=== PATIENT | female | born 1995 | race Two or more races ===

== ENCOUNTER 2018-02-08 01:18 | Emergency (ER) | payer SELFPAY ==
--- NOTE | 2018-02-08 03:26 | RADIOLOGY REPORT (SQ) ---
CLINICAL HISTORY: vag bleeding COMPARISON: None. TECHNIQUE: US TRANSVAGINAL on 02/08/2018 1:43 AM ENERGY CONSULTANT FINDINGS: Uterus measures 9.2 cm and is normal in echotexture. Endometrium measures 5.4 mm. Cervix measures 3 cm and contains small nabothian cysts. Right ovary measures 4.1 x 3.0 x 3.2 cm and contains several cysts, largest of which measures 1.5 cm. Left ovary measures 3.1 x 2.1 x 2.1 cm and is normal in echotexture. There is patent flow to both ovaries. IMPRESSION: Small right ovarian cyst.
[2018-02-08 03:43] LABS: ABSOLUTE BASOPHILS # (AUTO) 0.1 10^3/uL (0.0-0.2); ABSOLUTE EOSINOPHILS # (AUTO) 0.2 10^3/uL (0.0-0.6); ABSOLUTE LYMPHOCYTES (AUTO) 2.9 10^3/uL (0.5-4.7); ABSOLUTE MONOCYTES (AUTO) 0.7 10^3/uL (0.1-1.4); ABSOLUTE NEUT (AUTO) 4.7 10^3/uL (1.7-8.2); BASOPHILS % (AUTO) 0.7 % (0-2); EOSINOPHILS % (AUTO) 2.7 % (0-6); HEMATOCRIT 36.7 % (36.0-47.0); HEMOGLOBIN 12.9 g/dL (12.0-15.5); LYMPHOCYTES % (AUTO) 33.6 % (13-45); MEAN CORPUSCULAR HGB CONC 35.1 g/dL (32.0-36.0); MEAN CORPUSCULAR VOLUME 88 fl (80-97); MONOCYTES % (AUTO) 8.7 % (3-13); PLATELET COUNT 340 10^3/uL (150-450); RED BLOOD COUNT 4.16 10^6/uL (3.72-5.28); RED CELL DISTRIBUTION WIDTH 12.9 % (11.5-14.0); SEGMENTED NEUTROPHILS % (AUTO) 54.3 % (42-78); TOTAL CELLS COUNTED % (AUTO) 100 %; WHITE BLOOD COUNT 8.6 10^3/uL (4.0-10.5)
[2018-02-08 03:51] LABS: APPEARANCE,URINE CLOUDY; BILIRUBIN,URINE NEGATIVE (NEGATIVE); COLOR,URINE YELLOW; GLUCOSE, URINE NEGATIVE (NEGATIVE); KETONES,URINE NEGATIVE (NEGATIVE); LEUKOCYTE ESTERASE,URINE NEGATIVE (NEGATIVE); NITRITE,URINE NEGATIVE (NEGATIVE); PROTEIN,URINE 30 mg/dL (NEGATIVE); URINE SPECIFIC GRAVITY 1.027
[2018-02-08 04:00] LABS: ALANINE AMINOTRANSFERASE 24 U/L (9-52); ALBUMIN 4.6 g/dL (3.5-5.0); ALKALINE PHOSPHATASE 62 U/L (38-126); ANION GAP 13 (5-19); ASPARTATE AMINO TRANSFERASE 21 U/L (14-36); BILIRUBIN,DIRECT 0.3 mg/dL (0.0-0.4); BILIRUBIN,TOTAL 0.7 mg/dL (0.2-1.3); BLOOD UREA NITROGEN 14 mg/dL (7-20); CALCIUM 9.8 mg/dL (8.4-10.2); CARBON DIOXIDE 29 mmol/L (22-30); CHLORIDE 104 mmol/L (98-107); GLUCOSE 91 mg/dL (75-110); SODIUM 146.2 mmol/L (137-145); TOTAL PROTEIN 7.5 g/dL (6.3-8.2)
[2018-02-08 04:46] LABS: EPITHELIALS (WET MOUNT) 3+ EPITHELIALS SEEN; RBCS (WET MOUNT) RARE RBCS SEEN; T.VAGINALIS (WET MOUNT) NO TRICHOMONAS SEEN; WBCS (WET MOUNT) NO WBCS SEEN; YEAST (WET MOUNT) NO YEAST SEEN
--- NOTE | 2018-02-08 05:34 | ER Document Report ---
ED General - General Chief Complaint: Vaginal Bleeding Stated Complaint: VAGINAL BLEEDING Time Seen by Provider: 02/08/18 01:41 Notes: Patient is a 22-year-old female presenting to the emergency department chief complaint vaginal bleeding. Patient states her menses ended on Sunday. States today initially she woke up with blood in her underwear. States it was a very little amount. Then patient noted throughout the day when she would use the bathroom and wipe there was also blood on the tissue. Patient states she has no dysuria and she knows that the blood is coming from her vagina. Patient denies dysuria, fever does admit to some malodorous vaginal discharge. Patient does admit to some minor suprapubic cramping. past medical history: None Medications: None Allergies: None Surgical history: Cholecystectomy and section. Patient admits to cigarette smoking, occasional EtOH use, denies illicit drug use. TRAVEL OUTSIDE OF THE [place] IN LAST 30 DAYS: No Past Medical History - General Information source: Patient - Social History Smoking Status: Former Smoker Chew tobacco use (# tins/day): No Frequency of alcohol use: Occasional Drug Abuse: None Family History: Reviewed & Not Pertinent Patient has suicidal ideation: No Patient has homicidal ideation: No Renal/ Medical History: Denies: Hx Peritoneal Dialysis Review of Systems - Review of Systems Constitutional: No symptoms reported EENT: No symptoms reported Cardiovascular: No symptoms reported Respiratory: No symptoms reported Gastrointestinal: See HPI Genitourinary: See HPI Female Genitourinary: See HPI Musculoskeletal: No symptoms reported Skin: No symptoms reported Hematologic/Lymphatic: No symptoms reported Neurological/Psychological: No symptoms reported Physical Exam - Vital signs Vitals: Temp Pulse Resp BP Pulse Ox 98.6 F 80 16 138/82 H 98 02/08/18 01:25 02/08/18 01:25 02/08/18 01:25 02/08/18 01:25 02/08/18 01:25 - Notes Notes: GENERAL: Alert, interacts well. No acute distress. HEAD: Normocephalic, atraumatic. EYES: Pupils equal, round, and reactive to light. Extraocular movements intact. ENT: Oral mucosa moist, tongue midline. NECK: Full range of motion. Supple. Trachea midline. LUNGS: Clear to auscultation bilaterally, no wheezes, rales, or rhonchi. No respiratory distress. HEART: Regular rate and rhythm. No murmur ABDOMEN: Soft, non-tender. Non-distended. Bowel sounds present in all 4 quadrants. Minor suprapubic tenderness upon palpation. EXTREMITIES: Moves all 4 extremities spontaneously. No edema, normal radial and dorsalis pedis pulses bilaterally. No cyanosis. BACK: no cervical, thoracic, lumbar midline tenderness. No saddle anesthesia, normal distal neurovascular exam. No CVA tenderness bilaterally NEUROLOGICAL: Alert and oriented x3. Normal speech. cranial nerves II through XII grossly intact. PSYCH: Normal affect, normal mood. SKIN: Warm, dry, normal turgor. No rashes or lesions noted. PELVIC: Pelvic reveals very scant amount of blood in the cul-de-sac. No other discharge noted no malodor present. No cervical motion tenderness, no adnexal tenderness bilaterally Course - Re-evaluation Re-evalutation: 02/08/18 05:35 Ultrasound reveals a right ovarian cyst. Also reveals patent blood flow to bilateral ovaries. Urine shows no signs of urinary tract infection. Wet mount shows no trichomonas, no yeast, no bacterial vaginosis. GC pending. Patient states she does not believe she has been exposed to GC and she does not wish to be treated prophylactically in the emergency room. Discussed that her labs show no signs of anemia at this time. Patient needs to follow-up with [facility]. - Vital Signs Vital signs: Temp Pulse Resp BP Pulse Ox 98.6 F 80 16 138/82 H 98 02/08/18 01:25 02/08/18 01:25 02/08/18 01:25 02/08/18 01:25 02/08/18 01:25 - Laboratory Result Diagrams: 02/08/18 02:57 02/08/18 02:57 Laboratory results interpreted by me: 02/08/18 02/08/18 02:57 02:57 Sodium 146.2 H Urine Protein 30 H Urine Blood LARGE H Urine Urobilinogen 4.0 H Discharge - Discharge Clinical Impression: Vaginal bleeding Condition: Stable Disposition: HOME, SELF-CARE Instructions: Vaginal Bleeding ([facility]) Additional Instructions: As we discussed you have been seen and treated in the emergency department for vaginal bleeding. You need to follow-up with [facility]. Please return to the emergency room for any other concerning symptoms. Please return if you feel like your vaginal bleeding is getting heavier, you feel lightheaded, dizzy, weak , short of breath. Referrals: SMILEY PANCHAL MD [ACTIVE STAFF] - Follow up as needed
[2018-02-08 05:57] VITALS: BP 122/71
[2018-02-08 06:08] LABS: CHLAM PCR NOT DETECTED (NOT DETECT); GON PCR NOT DETECTED (NOT DETECT)
== END 2018-02-08 05:58 | disposition home or self-care (01) ==
LOC: ER 01:18
DX: N93.9 Abnormal uterine and vaginal bleeding, unspecified (principal); F17.210 Nicotine dependence, cigarettes, uncomplicated
CPT/HCPCS: 36415; 76830; 80053; 81001; 81025; 85025; 87210; 87491; 87591; 93976; 99284